=== PATIENT | male | born 2000 | race Two or more races ===

== ENCOUNTER 2023-02-24 01:31 | Emergency (ER) | payer SELFPAY ==
[2023-02-24] MEDS: SODIUM CHLORIDE 0.9% IV 1,000 ML 999 ML IV CONT ×2 (01:28→02:52)
[2023-02-24] MEDS: ONDANSETRON INJ 4 MG/2 ML VIAL IV PUSH (01:29)
[2023-02-24 01:37] LABS: Basophils Absolute Auto 0.1 K/mm3 (0.0-0.1); Basophils Percent Auto 0.4 % (0.2-1.2); Eosinophils Absolute Auto 0.1 K/mm3 (0-0.3); Eosinophils Percent Auto 0.6 % (0-4.4); Hematocrit 48.3 % (42.0-52.0); Hemoglobin 15.8 g/dL (14.0-18.0); Immature Granulocyte Absolute 0.16 K/mm3 (0.00-0.031); Lymphocytes Absolute Auto 3.32 K/mm3 (0.9-3.2); Lymphocytes Percent Auto 20.7 % (18.3-44.2); Mean Corpuscular HGB Conc 32.7 g/dl (32-36); Mean Corpuscular Hemoglobin 29.8 pg (26-34); Mean Platelet Volume 10.6 fl (7.4-10.4); Monocytes Absolute Auto 1.3 K/mm3 (0.1-0.6); Monocytes Percent Auto 8.3 % (2.6-8.5); Neutrophils Absolute Auto 11.1 K/mm3 (1.3-6.7); Platelet Count Result 277 k/mm3 (150-375); Red Blood Count 5.31 M/mm3 (4.6-6.20); Red Cell Distribution Width 11.9 % (11.5-14.5); White Blood Count 16.1 K/mm3 (4.5-10.0)
[2023-02-24 01:40] VITALS: BP 137/81; PULSE 112; RESP 16; TEMP 36.2; O2SAT 96
--- NOTE | 2023-02-24 01:46 | ECG_ITS ---
Measurements Intervals [place] Rate: 106 P: 23 MN: 152 QRS: 71 QRSD: 99 T: 10 QT: 326 QTc: 434 Interpretive Statements SINUS TACHYCARDIA MINIMAL Q WAVES- INFERIOR LEADS BORDERLINE ECG NO PREVIOUS ECG AVAILABLE FOR COMPARISON Electronically Signed On 02-24-2023 6:51:58 [employer] by Harris Mathis D.O.
--- NOTE | 2023-02-24 01:47 | ED.GENADULT ---
HPI - General Adult General Chief complaint: Unspecified Stated complaint: too much surendraanna Time Seen by Provider: 02/24/23 01:34 CDT Source: patient Mode of arrival: EMS Limitations: no limitations History of Present Illness HPI narrative: This is a 22 year old male that presents to the ER for marijuana ingestion. Reports he has not used marijuana edibles before tonight. He took 4 gummies. Reports at first he felt nothing, then he felt tired. Now he feels like his arms are tingling and has had nausea and vomiting. Also reports some dizziness. Reports he was too high and wanted to come to the ER. 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 HEAD: Normocephalic, atraumatic. EYES: PERRLA and EOMI. ENT: Nares clear, no rhinorrhea or epistaxis. Mucous membranes moist. Oropharynx without tonsillar hypertrophy exudate or other lesions. Bilateral TMs pearly perez non-bulging NECK: Supple. No adenopathy or masses. CHEST: Clear to auscultation. No respiratory distress. No wheezes rales or rhonchi HEART: Regular rate and rhythm. No murmur heard. Normal peripheral pulses. EXTREMITIES: Normal range of motion. No edema. SKIN: Warm, dry, no rash. NEURO: No focal deficits. Alert and oriented x3. Cranial nerves II through XII grossly intact PSYCH: Normal mood and affect Course Course Emergency Course: Patient updated on workup and agrees with plan of care Vital Signs Vital signs: Vital Signs Temperature 97.2 F L 02/24/23 01:40 CDT Pulse Rate 112 H 02/24/23 01:40 CDT Respiratory Rate 16 02/24/23 01:40 CDT Blood Pressure 137/81 02/24/23 01:40 CDT Pulse Oximetry 96 02/24/23 01:40 CDT Oxygen Delivery Room Air 02/24/23 01:40 CDT Temperature 97.2 F L 02/24/23 01:40 CDT Pulse Rate 113 H 02/24/23 02:46 Respiratory Rate 15 02/24/23 02:45 Blood Pressure 129/73 02/24/23 02:45 Pulse Oximetry 100 02/24/23 02:45 Oxygen Delivery Room Air 02/24/23 01:40 CDT Medical Decision Making MDM Narrative Medical decision making narrative: Patient presents to the ER after taking marijuana gummies for the first time tonight. Tachycardic upon arrival. This normalized with IV fluids administration. He is neurologically intact. CBC with leukocytosis, likely due to vomiting. He has no localizing infectious symptoms. Metabolic panel with mild elevation ALT otherwise no concerning findings. Check screen positive for cannabinoids. Urine with some evidence of dehydration. EKG shows sinus tachycardia. Patient hydrated in the ED and given Zofran with improvement. Encouraged to abstain from further use of edibles. He is to follow-up with primary provider. He was given warnings to return to the ER Differential Diagnosis Differential Diagnosis: marijuana intoxication, dehydration Vital Signs Vital Signs: Vital Signs Temperature 97.2 F L 02/24/23 01:40 CDT Pulse Rate 112 H 02/24/23 01:40 CDT Respiratory Rate 16 02/24/23 01:40 CDT Blood Pressure 137/81 02/24/23 01:40 CDT Pulse Oximetry 96 02/24/23 01:40 CDT Oxygen Delivery Room Air 02/24/23 01:40 CDT Temperature 97.2 F L 02/24/23 01:40 CDT Pulse Rate 113 H 02/24/23 02:46 Respiratory Rate 15 02/24/23 02:45 Blood Pressure 129/73 02/24/23
[2023-02-24 01:49] LABS: Alanine Aminotransferase 150 U/L (6-50); Albumin Level 4.8 g/dL (3.5-5.1); Alkaline Phosphatase 60 U/L (38-126); Anion Gap 8 mmol/L (8-16); Aspartate Amino Transferase 57 U/L (17-59); Bilirubin,Total 0.6 mg/dL (0.2-1.3); Blood Urea Nitrogen 16 mg/dL (9-20); Calcium 9.4 mg/dL (8.4-10.2); Carbon Dioxide 27 mmol/L (22-30); Chloride 104 mmol/L (98-107); Estimated CRCL calculation 141 ml/min; Estimated Glomerular Filt Rate > 60; Glucose 137 mg/dL (65-110); Potassium 3.6 mmol/L (3.4-5.0); Sodium 139 mmol/L (137-145)
[2023-02-24 02:45] VITALS: BP 129/73; PULSE 110; RESP 15; O2SAT 100
[2023-02-24 02:46] VITALS: PULSE 113
[2023-02-24 02:57] LABS: Appearance Urine Clear (Clear); Bilirubin Urine Negative (Negative); Blood Urine Negative (Negative); Color Urine Yellow (Yellow); Glucose Urine UA Trace mg/dL (Negative); Ketones Urine Trace mg/dL (Negative); Leukocyte Esterase Ur Negative LEU/UL (Negative); Nitrate Urine Negative (Negative); Protein Urine Negative (Negative); Specific Grav Ur 1.025 (1.001-1.035)
[2023-02-24 03:39] LABS: Amphetamine Screen Urine Negative (Negative); Barbiturate Screen Urine Negative (Negative); Benzodiazepines Screen Urine Negative (Negative); Cannabinoid Screen Urine Positive (Negative); Cocaine Screen Urine Negative (Negative); Methadone Screen Urine Negative (Negative); Opiate Screen Urine Negative (Negative); Phencyclidine Screen Urine Negative (Negative)
[2023-02-24 03:47] LABS: Add Urine Microscopic? NO
[2023-02-24 04:19] VITALS: BP 127/67; PULSE 110; RESP 15; O2SAT 95
== END 2023-02-24 04:27 | disposition home or self-care (01) ==
PROVIDERS: Emergency Provider Physician Assistant
DX: F12.920 Cannabis use, unspecified with intoxication, uncomplicated (principal)
CPT/HCPCS: 36415; 80053; 80307; 81003; 85025; 93005; 96361; 96374; 99284; J7030